=== PATIENT | female | born 1965 | race Caucasian/White ===

== ENCOUNTER 2021-08-09 16:02 | Emergency (ER) | payer OTHER ==
[~2021-08-09] VITALS: Ht 142.2 cm; Wt 67.1 kg
[2021-08-09 16:13] VITALS: BP 145/83
--- NOTE | 2021-08-09 16:34 | NUR ---
PT AMBULATED TO BED 7
--- NOTE | 2021-08-09 16:36 | NUR ---
56 Y FEMALE WITH C/O LEFT 2 TOE PAIN AND ITCHNESS OVER HER ENITRE BODYS/P POSSIBLE SPIDER BITE X 2 DAYS. PT WAS SEEN AT URGENT CARE 2 DAYS AGO & GOT BENADRYL, BUT STATED IT HAS HELPED. UPON ASSESSMENT NO SIGN OF A BITE IS NOTED, NO DISCOLORATION, OR SWELLING NOTED. SLIGHT REDNESS NOTED ON CHEST REGION. NO CHEST PAIN OR SOB STATED BY PT PMH: GALL BLADDER REMOVAL NKA
--- NOTE | 2021-08-09 17:00 | NUR ---
DR. ALARCON BEDSIDE EVALUATING PT
[2021-08-09] MEDS ORDERED: PRED20TA5 PO (17:31)
[2021-08-09 17:37] VITALS: BP 145/83
== END 2021-08-09 17:37 | disposition home or self-care (01) ==
LOC: MED 16:02
DX: L29.9 Pruritus, unspecified (principal)
CPT/HCPCS: 99283

== ENCOUNTER 2021-08-11 07:27 | Emergency (ER) | payer OTHER ==
[~2021-08-11] VITALS: Ht 142.2 cm; Wt 68.0 kg
[~2021-08-11 07:27] MED LIST: PRED20TA5 PO
[2021-08-11 07:31] VITALS: BP 126/69
--- NOTE | 2021-08-11 07:34 | NUR ---
Patient ambulated with steady gait to bed 4.
--- NOTE | 2021-08-11 07:35 | NUR ---
Dr. Wright is evaluating patient at bedside.
--- NOTE | 2021-08-11 07:35 | NUR ---
56 y/o F BIB self from home c/o bug bite recheck. Patient A&Ox4, ambulatory, reports 4 days ago she was bit on her L foot from an unknown type bug. Patient states bilateral cramping and associated nausea, blurry vision, headache, and cramping-like pain. Patient states 5/10, cramping/intermittent, non-radiating pain to bilateral LE. Patient denies fever, chills, vomiting, diarrhea. Left leg noted with closed wound -drainage -bleeding -swelling -erythema. Patient states seen here 1 day ago and is compliant with prescribed Prednisone. Reports symptoms began prior to medication. VSS; respirations even/unlabored. Bed locked in lowest position, side rails x 1, call light in reach. PMH/Sx/Meds: cholecystectomy NKA
[2021-08-11] MEDS ORDERED: ONDANSETRON 4 MG ODT PO ONE (07:40)
--- NOTE | 2021-08-11 07:43 | NUR ---
EMT at bedside for EKG
[2021-08-11] MEDS ORDERED: ONDA-24 SL (07:51)
--- NOTE | 2021-08-11 07:53 | NUR ---
PER ERMD 12 LEAD WAS DONE ON PT AND CAME BACK NSR AT 74 HR.
== END 2021-08-11 08:26 | disposition home or self-care (01) ==
LOC: MED 07:27
DX: S91.302D Unspecified open wound, left foot, subsequent encounter (principal); R11.0 Nausea; Z79.899 Other long term (current) drug therapy; X58.XXXD Exposure to other specified factors, subsequent encounter
CPT/HCPCS: 93005; 99283; Q0162

== ENCOUNTER 2022-05-11 11:47 | Emergency (ER) | payer OTHER ==
[~2022-05-11] VITALS: Ht 149.9 cm; Wt 63.5 kg
[~2022-05-11 11:47] MED LIST changes: +ONDA-188 SL
[2022-05-11 11:56] VITALS: BP 136/91
--- NOTE | 2022-05-11 12:00 | NUR ---
Pt coming from home ambulatory with steady gait. Pt is A&Ox4. SKin intact. Pt c/o falling at a store landing on her left side on 05/08/22. States went to urgent care on 05/09/22 and was discharged due to physician stating nothing is broken or fractured. Pt states she is still having pain on left side of body especially left buttocks and left wrist. Has not taken anything for pain. No chest pain and no sob. Denies n/v. VSS. Bed in lowest position. NKA Hx of Arthiritis Surgery for Gallstones.
[2022-05-11] MEDS ORDERED: KETOROLAC 60 MG/2 ML VIAL IM ONE (12:10)
--- NOTE | 2022-05-11 12:36 | NUR ---
IM PAIN MEDS GIVEN-NADR AT THIS TIME
--- NOTE | 2022-05-11 12:45 | NUR ---
Dr. Yanes at bedside examining pt.
--- NOTE | 2022-05-11 14:00 | NUR ---
X-Ray being done at bedside.
[2022-05-11] MEDS ORDERED: CEPH-588 PO (14:52)
[2022-05-11 15:08] VITALS: BP 113/68
--- NOTE | 2022-05-11 15:09 | NUR ---
Patient discharged with v/s stable. Written and verbal after care instructions given and explained. Patient alert, oriented and verbalized understanding of instructions. Ambulatory with steady gait. All questions addressed prior to discharge. ID band removed. Patient advised to follow up with PMD. Rx of cephalexin (sent) given. Patient educated on indication of medication including possible reaction and side effects. Opportunity to ask questions provided and answered.
== END 2022-05-11 15:08 | disposition home or self-care (01) ==
LOC: MED 11:47
DX: S86.811A Strain of other muscle(s) and tendon(s) at lower leg level, right leg, initial encounter (principal); N39.0 Urinary tract infection, site not specified; R03.0 Elevated blood-pressure reading, without diagnosis of hypertension; Z79.899 Other long term (current) drug therapy; X58.XXXA Exposure to other specified factors, initial encounter; Y93.01 Activity, walking, marching and hiking; Y92.89 Other specified places as the place of occurrence of the external cause; Y99.8 Other external cause status
CPT/HCPCS: 72220; 73552; 81002; 81025; 87086; 96372; 99284; J1885

== ENCOUNTER 2024-01-04 11:34 | Emergency (ER) | payer OTHER ==
[~2024-01-04] VITALS: Ht 149.9 cm; Wt 69.2 kg
[~2024-01-04 11:34] MED LIST changes: +CEPH-588 PO
[2024-01-04 11:56] VITALS: BP 124/86; PULSE 91; RESP 18; TEMP 98.4; O2SAT 98
[2024-01-04] MEDS: ONDANSETRON 4 MG/2 ML VIAL IVP ONE (12:42)
[2024-01-04] MEDS: KETOROLAC 30 MG/ML VIAL IVP ONE (12:42)
[2024-01-04] MEDS: NACL 0.9% 1,000 ML IV ONE (12:46)
[2024-01-04 13:01] LABS: BASOPHILS % (AUTO) 0.5 % (0.0-2.0); EOSINOPHILS # (AUTO) 0.1 K/uL (0-0.4); EOSINOPHILS % (AUTO) 2.5 % (0.0-4.0); HEMATOCRIT 41.2 % (36-48); LYMPHOCYTES # (AUTO) 1.6 K/uL (2.5-16.5); LYMPHOCYTES % (AUTO) 32.1 % (20.5-51.1); MEAN CORPUSCULAR HEMOGLOBIN 31 pg (27-31); MEAN CORPUSCULAR HGB CONC 34 g/dL (33-37); MEAN CORPUSCULAR VOLUME 90.8 fL (80-94); MONOCYTES # (AUTO) 0.3 K/uL (0.8-1.0); MONOCYTES % (AUTO) 6.1 % (1.7-9.3); NEUTROPHILS % (AUTO) 58.8 % (42.2-75.2); PLATELET COUNT (AUTO) 175 K/uL (140-450); RED BLOOD CELL COUNT(AUTO) 4.54 MIL/uL (4.20-5.40); RED CELL DISTRIBUTION WIDTH 12.9 % (11.6-13.7); WHITE BLOOD COUNT (AUTO) 5.1 K/uL (4.8-10.8)
[2024-01-04 13:14] LABS: ANION GAP 8.4 (8-16); CALCIUM 8.9 mg/dL (8.5-10.1); CARBON DIOXIDE 29.4 mmol/L (21-32); CREATININE 0.6 mg/dL (0.6-1.3); POTASSIUM 3.8 mmol/L (3.5-5.1)
[2024-01-04 13:19] LABS: PROTHROMBIN TIME 10.5 secs (10.8-13.4)
[2024-01-04 13:26] LABS: ALANINE AMINOTRANSFERASE 25 U/L (12-78); ALBUMIN 3.5 g/dL (3.4-5.0); ALKALINE PHOSPHATASE 61 U/L (50-136); ASPARTATE AMINOTRANSFERASE 19 U/L (15-37); BILIRUBIN,DIRECT 0.1 mg/dL (0.0-0.3); TOTAL BILIRUBIN 0.7 mg/dL (0.0-1.0); TOTAL PROTEIN, SERUM 7.9 g/dL (6.4-8.2)
[2024-01-04] MEDS: MECLIZINE 25 MG TAB PO ONE (13:53)
[2024-01-04] MEDS ORDERED: MECL-416 PO (13:56)
[2024-01-04] MEDS ORDERED: ONDA-188 SL (13:56)
[2024-01-04 14:16] LABS: BILIRUBIN,URINE NEGATIVE (NEGATIVE); BLOOD, URINE NEGATIVE (NEGATIVE); COLOR,URINE YELLOW (YELLOW); LEUKOCYTE ESTERASE ,URINE 2+ (NEGATIVE); NITRITE, URINE NEGATIVE (NEGATIVE); PH,URINE 6.5 (5.0-9.0); PROTEIN,URINE NEGATIVE (NEGATIVE); UGLUCOSE NEGATIVE (NEGATIVE); UROBILINOGEN,URINE 0.2 EU/dL (0.2 - 1)
[2024-01-04 14:17] LABS: APPEARANCE,URINE SLIGHTLY CLOUDY (CLEAR)
[2024-01-04 14:18] LABS: BACTERIA,URINE 2+ /HPF (None Seen); RBC,URINE 0 /HPF (0-5); SQUAMOUS EPITHELIAL CELL,UR 4-10 (MOD) /LPF (0-3 (FEW))
[2024-01-04 14:19] LABS: MUCUS,URINE None Seen /LPF (None Seen)
[2024-01-04] MEDS ORDERED: CEPH-588 PO (14:35)
[2024-01-04 14:58] VITALS: BP 134/83; PULSE 59; RESP 18; TEMP 98.4; O2SAT 98
== END 2024-01-04 14:59 | disposition home or self-care (01) ==
LOC: MED 11:34
DX: R42 Dizziness and giddiness (principal); N39.0 Urinary tract infection, site not specified; R11.2 Nausea with vomiting, unspecified; Z79.899 Other long term (current) drug therapy
CPT/HCPCS: 36415; 70450; 71045; 80048; 80076; 81001; 81025; 83880; 84484; 85025; 85610; 85730; 87086; 93005; 96361; 96374; 96375; 99285; J1885; J2405; J7030; J8597; Q0092

== ENCOUNTER 2024-04-15 14:56 | Emergency (ER) | payer OTHER ==
[~2024-04-15] VITALS: Ht 142.2 cm; Wt 69.2 kg
[~2024-04-15 14:56] MED LIST changes: +MECL-416 PO
[2024-04-15 15:24] VITALS: BP 121/80; PULSE 82; RESP 16; TEMP 98.5; O2SAT 99
[2024-04-15 16:32] VITALS: O2SAT 99
[2024-04-15] MEDS: ALUMINUM HYD/MAG/SIMETHICONE 30 ML UDC PO ONE (16:42)
[2024-04-15 16:43] VITALS: BP 103/64; PULSE 76; RESP 14; TEMP 98.2; O2SAT 97
[2024-04-15] MEDS: FAMOTIDINE 20 MG TAB PO ONE (16:43)
[2024-04-15 16:59] LABS: BASOPHILS % (AUTO) 0.5 % (0.0-2.0); EOSINOPHILS # (AUTO) 0.1 K/uL (0-0.4); EOSINOPHILS % (AUTO) 2.8 % (0.0-4.0); HEMATOCRIT 38.1 % (36-48); HEMOGLOBIN 12.8 g/dL (12.0-16.0); LYMPHOCYTES # (AUTO) 1.8 K/uL (2.5-16.5); LYMPHOCYTES % (AUTO) 36.5 % (20.5-51.1); MEAN CORPUSCULAR HEMOGLOBIN 31 pg (27-31); MEAN CORPUSCULAR HGB CONC 34 g/dL (33-37); MEAN CORPUSCULAR VOLUME 90.5 fL (80-94); MONOCYTES # (AUTO) 0.3 K/uL (0.8-1.0); NEUTROPHILS # (AUTO) 2.6 K/uL (1.8-7.7); NEUTROPHILS % (AUTO) 53.2 % (42.2-75.2); PLATELET COUNT (AUTO) 174 K/uL (140-450); RED BLOOD CELL COUNT(AUTO) 4.21 MIL/uL (4.20-5.40); WHITE BLOOD COUNT (AUTO) 4.8 K/uL (4.8-10.8)
[2024-04-15 17:15] LABS: ANION GAP 9.1 (8-16); CALCIUM 8.8 mg/dL (8.5-10.1); CARBON DIOXIDE 29.7 mmol/L (21-32); CREATININE 0.6 mg/dL (0.6-1.3); POTASSIUM 3.8 mmol/L (3.5-5.1)
[2024-04-15] MEDS ORDERED: MAG355OR2 PO (18:47)
[2024-04-15] MEDS ORDERED: FAMO-90 PO (18:47)
== END 2024-04-15 18:59 | disposition home or self-care (01) ==
LOC: MED 14:56
DX: K21.9 Gastro-esophageal reflux disease without esophagitis (principal); Z79.1 Long term (current) use of non-steroidal anti-inflammatories (NSAID); Z79.2 Long term (current) use of antibiotics; Z79.899 Other long term (current) drug therapy
CPT/HCPCS: 36415; 71045; 80048; 84484; 85025; 93005; 99285

== ENCOUNTER 2024-04-22 18:12 | Emergency (ER) | payer OTHER ==
[~2024-04-22] VITALS: Ht 142.2 cm; Wt 68.0 kg
[~2024-04-22 18:12] MED LIST changes: +FAMO-90 PO; +MAG355OR2 PO
[2024-04-22 18:17] VITALS: BP 138/86; PULSE 76; RESP 20; TEMP 98.8; O2SAT 98
[2024-04-22] MEDS: MECLIZINE 25 MG TAB PO ONE (18:46)
[2024-04-22] MEDS: NACL 0.9% 1,000 ML IV ONE (18:46)
[2024-04-22] MEDS: ONDANSETRON 4 MG/2 ML VIAL IVP ONE (18:47)
[2024-04-22 19:11] LABS: BASOPHILS % (AUTO) 0.5 % (0.0-2.0); EOSINOPHILS # (AUTO) 0.1 K/uL (0-0.4); EOSINOPHILS % (AUTO) 2.7 % (0.0-4.0); HEMOGLOBIN 13.1 g/dL (12.0-16.0); LYMPHOCYTES # (AUTO) 1.9 K/uL (2.5-16.5); LYMPHOCYTES % (AUTO) 35.9 % (20.5-51.1); MEAN CORPUSCULAR HEMOGLOBIN 30 pg (27-31); MEAN CORPUSCULAR HGB CONC 34 g/dL (33-37); MEAN CORPUSCULAR VOLUME 90.4 fL (80-94); MONOCYTES # (AUTO) 0.4 K/uL (0.8-1.0); MONOCYTES % (AUTO) 7.5 % (1.7-9.3); NEUTROPHILS # (AUTO) 2.8 K/uL (1.8-7.7); NEUTROPHILS % (AUTO) 53.4 % (42.2-75.2); PLATELET COUNT (AUTO) 171 K/uL (140-450); RED BLOOD CELL COUNT(AUTO) 4.32 MIL/uL (4.20-5.40); RED CELL DISTRIBUTION WIDTH 12.9 % (11.6-13.7); WHITE BLOOD COUNT (AUTO) 5.3 K/uL (4.8-10.8)
[2024-04-22 19:20] LABS: ANION GAP 10.7 (8-16); CARBON DIOXIDE 28.9 mmol/L (21-32); CREATININE 0.7 mg/dL (0.6-1.3); POTASSIUM 3.6 mmol/L (3.5-5.1)
[2024-04-22 19:23] LABS: INR 0.99 (0.8-1.2); PARTIAL THROMBOPLASTIN TIME 23.6 secs (22-35.6); PROTHROMBIN TIME 10.4 secs (10.8-13.4)
[2024-04-22 19:30] VITALS: O2SAT 98
[2024-04-22 20:23] LABS: APPEARANCE,URINE CLEAR (CLEAR); BILIRUBIN,URINE NEGATIVE (NEGATIVE); BLOOD, URINE NEGATIVE (NEGATIVE); COLOR,URINE YELLOW (YELLOW); LEUKOCYTE ESTERASE ,URINE NEGATIVE (NEGATIVE); NITRITE, URINE NEGATIVE (NEGATIVE); PROTEIN,URINE NEGATIVE (NEGATIVE); UGLUCOSE NEGATIVE (NEGATIVE); UROBILINOGEN,URINE 0.2 EU/dL (0.2 - 1)
[2024-04-22] MEDS ORDERED: MECL-303 PO (21:49)
[2024-04-22 22:07] VITALS: BP 123/65; PULSE 81; RESP 16; TEMP 98.1; O2SAT 97
== END 2024-04-22 22:07 | disposition home or self-care (01) ==
LOC: MED 18:12
DX: R42 Dizziness and giddiness (principal); R00.0 Tachycardia, unspecified; R51.9 Headache, unspecified; Z79.1 Long term (current) use of non-steroidal anti-inflammatories (NSAID); Z79.2 Long term (current) use of antibiotics; Z79.899 Other long term (current) drug therapy
CPT/HCPCS: 36415; 70450; 70496; 70498; 71045; 80048; 81003; 82948; 84484; 85025; 85610; 85730; 86886; 86900; 86901; 96361; 96374; 99285; J2405; J7030; J8597; Q0092; Q9967; 99291

== ENCOUNTER 2024-04-29 16:30 | Emergency (ER) | payer OTHER ==
[~2024-04-29] VITALS: Ht 142.2 cm; Wt 70.1 kg
[~2024-04-29 16:30] MED LIST changes: +MECL-303 PO
[2024-04-29 16:54] VITALS: BP 153/87; PULSE 89; RESP 18; TEMP 97.3; O2SAT 100
[2024-04-29 17:45] LABS: BASOPHILS % (AUTO) 0.7 % (0.0-2.0); EOSINOPHILS # (AUTO) 0.2 K/uL (0-0.4); EOSINOPHILS % (AUTO) 2.9 % (0.0-4.0); HEMATOCRIT 39.8 % (36-48); HEMOGLOBIN 13.3 g/dL (12.0-16.0); LYMPHOCYTES # (AUTO) 1.8 K/uL (2.5-16.5); LYMPHOCYTES % (AUTO) 30.6 % (20.5-51.1); MEAN CORPUSCULAR HEMOGLOBIN 30 pg (27-31); MEAN CORPUSCULAR HGB CONC 34 g/dL (33-37); MEAN CORPUSCULAR VOLUME 90.4 fL (80-94); MONOCYTES # (AUTO) 0.4 K/uL (0.8-1.0); MONOCYTES % (AUTO) 6.5 % (1.7-9.3); NEUTROPHILS # (AUTO) 3.6 K/uL (1.8-7.7); NEUTROPHILS % (AUTO) 59.3 % (42.2-75.2); PLATELET COUNT (AUTO) 183 K/uL (140-450); RED CELL DISTRIBUTION WIDTH 13.1 % (11.6-13.7)
[2024-04-29 17:58] LABS: APPEARANCE,URINE CLEAR (CLEAR); BILIRUBIN,URINE NEGATIVE (NEGATIVE); BLOOD, URINE NEGATIVE (NEGATIVE); COLOR,URINE YELLOW (YELLOW); LEUKOCYTE ESTERASE ,URINE NEGATIVE (NEGATIVE); NITRITE, URINE NEGATIVE (NEGATIVE); PROTEIN,URINE NEGATIVE (NEGATIVE); UGLUCOSE NEGATIVE (NEGATIVE); UROBILINOGEN,URINE 0.2 EU/dL (0.2 - 1)
[2024-04-29 18:13] LABS: ALANINE AMINOTRANSFERASE 27 U/L (12-78); ALBUMIN 3.6 g/dL (3.4-5.0); ALKALINE PHOSPHATASE 68 U/L (50-136); ANION GAP 10.2 (8-16); ASPARTATE AMINOTRANSFERASE 19 U/L (15-37); CALCIUM 8.3 mg/dL (8.5-10.1); CARBON DIOXIDE 30.7 mmol/L (21-32); CHLORIDE 103 mmol/L (98-107); CREATININE 0.7 mg/dL (0.6-1.3); GFR ARICAN-AMERICAN 111 mL/min (>90); GFR NON ARICAN-AMERICAN 92 mL/min (>90); GLUCOSE 103 mg/dL (74-106); POTASSIUM 3.9 mmol/L (3.5-5.1); SODIUM SERUM 140 mmol/L (136-145); TOTAL BILIRUBIN 0.4 mg/dL (0.0-1.0); TOTAL PROTEIN, SERUM 7.1 g/dL (6.4-8.2); UREA NITROGEN, BLOOD 14 mg/dL (7-18)
[2024-04-29 22:18] LABS: FREE T4 (FREE THYROXINE) 0.96 ng/dL (0.76-1.46); THYROID STIMULATING HORMONE 1.85 uIU/mL (0.34-3.74)
== END 2024-04-29 23:30 | disposition home or self-care (01) ==
LOC: MED 16:30
DX: R42 Dizziness and giddiness (principal); R55 Syncope and collapse; R25.1 Tremor, unspecified; Z79.1 Long term (current) use of non-steroidal anti-inflammatories (NSAID); Z79.2 Long term (current) use of antibiotics; Z79.899 Other long term (current) drug therapy
CPT/HCPCS: 36415; 70450; 71045; 80053; 81003; 84439; 84443; 84484; 85025; 93005; 99285

== ENCOUNTER 2024-06-25 18:46 | Emergency (ER) | payer OTHER ==
[~2024-06-25] VITALS: Ht 142.2 cm; Wt 69.9 kg
[2024-06-25 18:50] VITALS: BP 158/88; PULSE 90; RESP 17; TEMP 98.3; O2SAT 99
[2024-06-25 19:51] VITALS: PULSE 88; RESP 16; O2SAT 100
[2024-06-25] MEDS: ALBUTEROL 0.083% 2.5 MG/3 ML NEBU INH ONE (19:51)
[2024-06-25 21:30] LABS: BASOPHILS % (AUTO) 0.3 % (0.0-2.0); EOSINOPHILS # (AUTO) 0.1 K/uL (0-0.4); EOSINOPHILS % (AUTO) 1.8 % (0.0-4.0); HEMATOCRIT 39.5 % (36-48); HEMOGLOBIN 13.4 g/dL (12.0-16.0); LYMPHOCYTES % (AUTO) 34.5 % (20.5-51.1); MEAN CORPUSCULAR HEMOGLOBIN 31 pg (27-31); MEAN CORPUSCULAR HGB CONC 34 g/dL (33-37); MEAN CORPUSCULAR VOLUME 90.9 fL (80-94); MONOCYTES # (AUTO) 0.3 K/uL (0.8-1.0); MONOCYTES % (AUTO) 4.9 % (1.7-9.3); NEUTROPHILS # (AUTO) 3.3 K/uL (1.8-7.7); NEUTROPHILS % (AUTO) 58.5 % (42.2-75.2); PLATELET COUNT (AUTO) 178 K/uL (140-450); RED BLOOD CELL COUNT(AUTO) 4.35 MIL/uL (4.20-5.40); WHITE BLOOD COUNT (AUTO) 5.7 K/uL (4.8-10.8)
[2024-06-25 21:41] LABS: ANION GAP 10.8 (8-16); CALCIUM 9.2 mg/dL (8.5-10.1); CARBON DIOXIDE 30.1 mmol/L (21-32); CREATININE 0.8 mg/dL (0.6-1.3); POTASSIUM 3.9 mmol/L (3.5-5.1)
[2024-06-26] MEDS ORDERED: ALBU0.0912 INH (02:06)
[2024-06-26 02:20] VITALS: RESP 16; TEMP 98.3
[2024-06-26 02:35] VITALS: BP 124/77; PULSE 88; O2SAT 99
== END 2024-06-26 02:20 | disposition home or self-care (01) ==
LOC: MED 18:46
DX: R06.02 Shortness of breath (principal); R40.0 Somnolence; Z79.899 Other long term (current) drug therapy
CPT/HCPCS: 36415; 71045; 71275; 80048; 84484; 85025; 85379; 93005; 94640; 99285; J7613; Q9967

== ENCOUNTER 2024-07-28 15:49 | Emergency (ER) | payer OTHER ==
[~2024-07-28] VITALS: Ht 142.2 cm; Wt 69.4 kg
[~2024-07-28 15:49] MED LIST changes: +ALBU0.0912 INH
[2024-07-28 15:56] VITALS: BP 154/94; PULSE 88; RESP 19; TEMP 97.7; O2SAT 99
[2024-07-28] MEDS: LORazepam 0.5 MG TAB PO ONE (16:39)
[2024-07-28] MEDS: ALBUTEROL 0.083% 2.5 MG/3 ML NEBU INH ONE (16:41)
[2024-07-28 16:42] VITALS: PULSE 89; RESP 15; O2SAT 96
[2024-07-28] MEDS ORDERED: ATA25 PO (17:43)
[2024-07-28] MEDS ORDERED: ALBU0.0912 IH (17:43)
[2024-07-28] MEDS ORDERED: MUC600 PO (17:43)
[2024-07-28 17:50] VITALS: BP 112/75; PULSE 78; RESP 16; TEMP 97.7; O2SAT 98
== END 2024-07-28 17:50 | disposition home or self-care (01) ==
LOC: MED 15:49
DX: R06.02 Shortness of breath (principal); R05.9 Cough, unspecified; F41.9 Anxiety disorder, unspecified; Z79.899 Other long term (current) drug therapy
CPT/HCPCS: 71045; 82948; 93005; 94640; 99283; J7613; Q0092